=== PATIENT | male | born 1980 | race Caucasian/White ===

== ENCOUNTER 2018-12-27 02:32 | Outpatient (CLI) | payer MEDICARE | END 2018-12-27 02:33 | disposition critical access hospital (66) | LOC: EMS 02:32 | PROVIDERS: ATTEND Surgery | DX: R41.82 Altered mental status, unspecified (principal); R45.1 Restlessness and agitation | CPT/HCPCS: A0425; A0429 ==

== ENCOUNTER 2018-12-27 02:48 | Emergency (ER) | payer MEDICARE ==
[2018-12-27 03:06] LABS: MUDS CUTOFF CONCENTRATIONS CUTOFF CONC BELOW:
[2018-12-27 03:18] LABS: AMPHETAMINE SCREEN,URINE NEGATIVE (NEGATIVE); BENZODIAZEPINES SCREEN, URINE NEGATIVE (NEGATIVE); COCAINE SCREEN URINE NEGATIVE (NEGATIVE); METHADONE SCREEN, URINE NEGATIVE (NEGATIVE); METHAMPHETAMINES SCREEN, URINE NEGATIVE (NEGATIVE); OPIATE SCREEN, URINE NEGATIVE (NEGATIVE); OXYCODONE SCREEN, URINE NEGATIVE (NEGATIVE); PROPOXYPHENE SCREEN, URINE NEGATIVE (NEGATIVE); TRICYCLIC ANTIDEPRESSANT,URINE NEGATIVE (NEGATIVE)
[2018-12-27 03:27] LABS: BASOPHILS # (AUTO) 0.1 10^3/uL (0.0-0.1); EOSINOPHILS # (AUTO) 0.1 10^3/uL (0.0-0.7); EOSINOPHILS % (AUTO) 1.4 %; HGB - HEMOGLOBIN 13.9 g/dL (14.0-18.0); LYMPHOCYTES # (AUTO) 1.6 10^3/uL (1.5-3.5); MEAN CORPUSCULAR HEMOGLOBIN 30.8 pg (27.0-31.0); MEAN CORPUSCULAR HGB CONC 33.2 g/dL (32.0-36.0); MEAN CORPUSCULAR VOLUME 92.7 fL (80.0-94.0); MEAN PLATELET VOLUME 10.6 fL (7.4-11.4); MONOCYTES # (AUTO) 0.6 10^3/uL (0.0-1.0); MONOCYTES % (AUTO) 8.8 %; NEUTROPHILS # (AUTO) 4.8 10^3/uL (1.5-6.6); NEUTROPHILS % (AUTO) 66.5 %; PLT - PLATELET COUNT 182 10^3/uL (130-450); RED BLOOD COUNT 4.52 10^6/uL (4.70-6.10); RED CELL DISTRIBUTION WIDTH 12.6 % (12.0-15.0); WHITE BLOOD COUNT 7.2 x10^3/uL (4.8-10.8)
[2018-12-27 03:43] LABS: ACETAMINOPHEN < 10 ug/mL (10-30); BUN - BLOOD UREA NITROGEN 23 mg/dL (6-20); CALCIUM 9.4 mg/dL (8.5-10.3); CARBON DIOXIDE - CO2 22 mmol/L (21-32); CHLORIDE 107 mmol/L (101-111); CREATININE 0.9 mg/dL (0.6-1.2); GFR - MDRD 94 (>89); GLUCOSE 89 mg/dL (70-100); SALICYLATE < 6.0 mg/dL; SODIUM 142 mmol/L (135-145)
--- NOTE | 2018-12-27 03:47 | ED Physician Documentation ---
<Tracey Singh Amina - Last Filed: 12/27/18 07:23> PD HPI MHE - Stated complaint Stated Complaint: MHE - Chief complaint Chief Complaint: MHE - History obtained from History obtained from: Patient - History of Present Illness Primary symptom: Psychosis Timing - onset: How many weeks ago (1) Similar symptoms before: Diagnosis (Reportedly has a history of schizophrenia per EMS) - Additional information Additional information: This is a 38-year-old man who presents by EMS worried about "an attack" that is been perpetuated on him. He thinks his food might of been poisoned and it is a satanic attack by Lucifer. Manifesting itself is abdominal pain and he is been having symptoms for about a week but they are getting progressively worse and "something perverted" entered his mouth. He called 911 earlier in the evening but he refused transport because they told him that they were to take him for mental health but he is insistent that his symptoms are not related to any mental health issue. He went to see a psychic who told him that a creature had entered into his stomach but it was not restorationism. He had been incarcerated for 66 months and was released about 2 years ago but he complied with the "DOC" in terms of their treatment plan taking medications so that he could be eligible for housing. He says he left the housing about a month ago and has been living in hotels ever since then and his SSI disability is due to run out. He says he is quit drinking. He denies any abdominal surgeries. He is never had anything like this happen before. Patient is not forthcoming to answer any specific questions Review of Systems Unable to obtain: Other (Patient is psychotic and clearly hallucinating) GI: reports: Abdominal Pain. denies: Vomiting PD PAST MEDICAL HISTORY - Past Medical History Other Past Medical History: Unknown medical HX- unable - Present Medications Home Medications: Ambulatory Orders Medication Instructions Recorded Confirmed No Known Home Medications 12/27/18 12/27/18 - Allergies Allergies/Adverse Reactions: Allergies Allergy/AdvReac Type Severity Reaction Status Date / Time No Known Drug Allergies Allergy Verified 12/27/18 02:58 - Social History Does the pt smoke?: Yes Smoking Status: Current every day smoker Does the pt drink ETOH?: Yes ETOH Use: Beer - POLST Patient has POLST: No PD ED PE NORMAL - Vitals Vital signs reviewed: Yes - General General: Other (He is a thin 38-year-old man who speaks rapidly and is clearly hallucinating. He occasionally looks over each of his shoulders and mumbles something to some nonvisible entity. He insists that he is not hearing voices but that they are "spirits".) - HEENT HEENT: Atraumatic - Neck Neck: Supple, no meningeal sign, No adenopathy, Thyroid normal - Cardiac Cardiac: RRR, No murmur - Respiratory Respiratory: No respiratory distress, Clear bilaterally - Abdomen Abdomen: Normal bowel sounds, Soft, Non tender - Derm Derm: Normal color, No rash, Other (No injury noted to the upper extremities) - Extremities Extremities: No edema - Neuro Neuro: Other (There are no gross neurological deficits.) - Psych Psych: Other (He is agitated, frequently shouting out but not aggressive or confrontational. Clearly hallucinating. He believes that people do not like him because he is in the Bible which he is quick to point out to me is the best selling book in history.) PD MEDICAL DECISION MAKING - ED course Complexity details: re-evaluated patient, d/w patient ED course: Patient did agree to have his blood drawn and mental health screening labs were sent as well as a urine specimen for urine drug screen. These labs are all normal and the drug screen is negative negative alcohol level. The patient continued to be agitated repeatedly saying that he did not want to in this hospital and he needed to go to [place] where they could help him. He believes that he is going to here and that if we give him any medication is going to kill him. He repeatedly tells me that he came here voluntarily and therefore cannot be an involuntary committal. He declined Zyprexa orally to help with his agitation and the longer he was here he just was progressively more disruptive but never confrontational. We have requested a screening by [facility] for involuntary placement due to his paranoid delusions and psychosis. I do not think he is capable of caring for himself in the community at this point and has no one that he can call or family to take him to a safe place. He was given Zyprexa IM Which he took voluntarily but reluctantly stating that he was not can wake up from it and that we were doing nothing to treat his medical condition 0722: Patient still sleeping after the Zyprexa. I have asked for [facility] evaluation for placement. Care turned over to Dr. Sanchez pending their evaluation and placement. Departure - Departure Disposition: 01 Home, Self Care Clinical Impression: Schizoaffective disorder Qualifiers: Schizoaffective disorder type: bipolar Qualified Code(s): F25.0 - Schizoaffect avinash disorder, bipolar type Condition: Stable Instructions: ED Schizo Affective Disorder Follow-Up: Your, doctor [Other] Comments: Take your medications as previously prescribed and follow-up with your regular doctor. <Shankar Sanchez - Last Filed: 12/27/18 10:40> Results - Vitals Vitals: Vital Signs - 24 hr 12/27/18 12/27/18 12/27/18 02:48 05:09 05:20 Temperature 36.6 C Heart Rate 71 67 85 Respiratory 18 18 14 Rate Blood Pressure 132/76 H 136/98 H 125/82 H O2 Saturation 99 98 98 12/27/18 12/27/18 05:43 06:52 Temperature Heart Rate 83 63 Respiratory 14 18 Rate Blood Pressure 146/80 H 109/88 H O2 Saturation 97 98 Oxygen O2 Source Room air - Labs Labs: Laboratory Tests 12/27/18 12/27/18 12/27/18 03:00 03:10 03:20 WBC RBC Hgb Hct MCV MCH MCHC RDW Plt Count MPV Neut # (Auto) Lymph # (Auto) [place] # (Auto) Eos # (Auto) Baso # (Auto) Absolute Nucleated RBC Nucleated RBC % Sodium 142 Potassium 4.3 Chloride 107 Carbon Dioxide 22 Anion Gap 13.0 BUN 23 H Creatinine 0.9 Estimated GFR (MDRD) 94 Glucose 89 Calcium 9.4 TSH Urine Color YELLOW Urine Clarity CLEAR Urine pH 6.5 Ur Specific [place] 1.015 Urine Protein NEGATIVE Urine Glucose (UA) NEGATIVE Urine Ketones NEGATIVE Urine Occult Blood TRACE-INTA Urine Nitrite NEGATIVE Urine Bilirubin NEGATIVE Urine Urobilinogen 2 H Ur Leukocyte Esterase NEGATIVE Ur Microscopic Review NOT INDICATED Urine Culture Comments NOT INDICATED Salicylates < 6.0 Urine Opiates Screen NEGATIVE Ur Oxycodone Screen NEGATIVE Urine Methadone Screen NEGATIVE Ur Propoxyphene Screen NEGATIVE Acetaminophen < 10 L Ur Barbiturates Screen NEGATIVE Ur Tricyclics Screen NEGATIVE Ur Phencyclidine Scrn NEGATIVE Ur Amphetamine Screen NEGATIVE U Methamphetamines Scrn NEGATIVE U Benzodiazepines Scrn NEGATIVE Urine Cocaine Screen NEGATIVE U Cannabinoids Screen NEGATIVE Ethyl Alcohol < 5.0 12/27/18 12/27/18 03:20 03:25 WBC 7.2 RBC 4.52 L Hgb 13.9 L Hct 41.9 L MCV 92.7 MCH 30.8 MCHC 33.2 RDW 12.6 Plt Count 182 MPV 10.6 Neut # (Auto) 4.8 Lymph # (Auto) 1.6 [place] # (Auto) 0.6 Eos # (Auto) 0.1 Baso # (Auto) 0.1 Absolute Nucleated RBC 0.00 Nucleated RBC % 0.0 Sodium Potassium Chloride Carbon Dioxide Anion Gap BUN Creatinine Estimated GFR (MDRD) Glucose Calcium TSH 2.92 Urine Color Urine Clarity Urine pH Ur Specific [place] Urine Protein Urine Glucose (UA) Urine Ketones Urine Occult Blood Urine Nitrite Urine Bilirubin Urine Urobilinogen Ur Leukocyte Esterase Ur Microscopic Review Urine Culture Comments Salicylates Urine Opiates Screen Ur Oxycodone Screen Urine Methadone Screen Ur Propoxyphene Screen Acetaminophen Ur Barbiturates Screen Ur Tricyclics Screen Ur Phencyclidine Scrn Ur Amphetamine Screen U Methamphetamines Scrn U Benzodiazepines Scrn Urine Cocaine Screen U Cannabinoids Screen Ethyl Alcohol PD MEDICAL DECISION MAKING - ED course ED course: After shift change the patient is improved and the DCR has come to the emergency department and evaluated the patient. He has found that the patient has a high rate of recidivism at [facility] and typical symptoms for his presentations there. He has spent some time in skilled nursing for [place] and he is now done with his parole. He is indicated he does not want to take his medications as he enjoys his manic feeling. He is manipulative in his behavior and arrangements are made for follow-up with his prescriber. The patient does have a history of noncompliance.
[2018-12-27 03:54] LABS: BILIRUBIN,URINE NEGATIVE (NEGATIVE); GLUCOSE, URINE (UA) NEGATIVE (NEGATIVE); KETONES,URINE (UA) NEGATIVE (NEGATIVE); LEUKOCYTE ESTERASE, URINE NEGATIVE (NEGATIVE); NITRITE,URINE NEGATIVE (NEGATIVE); OCCULT BLOOD,URINE TRACE-INTA (NEGATIVE); PH,URINE 6.5 PH (5.0-7.5); PROTEIN,URINE NEGATIVE (NEGATIVE); UROBILINOGEN,URINE 2 E.U./dL (NORMAL)
[2018-12-27 03:55] LABS: CLARITY,URINE CLEAR (CLEAR)
[2018-12-27] MEDS ORDERED: OLANZapine 10 MG VIAL IM STA (04:09)
[2018-12-27 10:40] VITALS: BP 119/68
== END 2018-12-27 11:09 | disposition home or self-care (01) ==
LOC: ED 02:48
DX: F25.0 Schizoaffective disorder, bipolar type (principal); F17.200 Nicotine dependence, unspecified, uncomplicated
CPT/HCPCS: 36415; 80048; 80306; 80307; 80320; 80329; 81001; 81003; 84443; 85025; 87086; 96372; 99283